=== PATIENT | female | born 1980 | race Caucasian/White ===

== ENCOUNTER 2022-09-08 22:40 | Emergency (ER) | payer OTHER ==
[~2022-09-08 22:40] MED LIST: ONDA4TAB11 PO
--- NOTE | 2022-09-09 07:16 | NUR ---
Arrival time was 2240 yesterday (09/08/22), departed at this time because pt is still on the ER tracker.
== END 2022-09-09 07:17 | disposition left against medical advice (07) ==
LOC: ER 22:40
DX: Z53.21 Procedure and treatment not carried out due to patient leaving prior to being seen by health care provider (principal)